=== PATIENT | female | born 1960 | race Caucasian/White ===

== ENCOUNTER → 2020-04-19 08:31 | Outpatient (BNVA) | payer MEDICAID, SELFPAY | PROVIDERS: PCP Nurse Practitioner Family; Referring Provider Nurse Practitioner Family; Visit Provider Nurse Practitioner | DX: K59.04 Chronic idiopathic constipation (principal); R14.0 Abdominal distension (gaseous); K21.9 Gastro-esophageal reflux disease without esophagitis; K31.9 Disease of stomach and duodenum, unspecified | CPT/HCPCS: 99213 ==

== ENCOUNTER → 2020-05-10 07:57 | Outpatient (REF) | payer MEDICAID, SELFPAY ==
--- NOTE | 2020-05-10 | NM_ITS ---
EXAMINATION: RADIONUCLIDE SOLID FOOD GASTRIC EMPTYING 4-HOUR STUDY CLINICAL INFORMATION: Gastroparesis. COMPARISON: No previous gastric emptying study is available for comparison. TECHNIQUE: A standard meal consisting of 4 oz of Egg Beaters brand tagged with 1 mCi Tc-99m Sulfur Colloid, 8 oz water and 2 slices of toast with jelly was administered orally to the patient. Images were obtained using a dual head gamma camera in the anterior and posterior projections over of the stomach immediately post ingestion and at hourly intervals up to 3 hours post ingestion. Images were not obtained at 4 hours due to the minimal retention at 3 hours. The anterior and posterior counts at each time interval were averaged using the geometric mean and expressed as percentage of the immediate post ingestion counts. FINDINGS: There is good visualization of activity in the stomach immediately post ingestion. As the study progresses, there is good clearance of activity from the stomach and visualization of progressively increasing small bowel activity. By the end of the study, there is almost no retention noted in the stomach. Retention in the stomach at each time interval was: 1 hour 87% (normal 37%-90%) 2 hours 45% (normal 30%-60%) 3 hours 6% 4 hours (Not Obtained) (normal 0%-10%) NM/NM gastric emptying study IMPRESSION: Normal solid food gastric emptying study.
== END ==
LOC: HO.NUCMED 07:57
PROVIDERS: Visit Provider Internal Medicine Gastroenterology
DX: K31.84 Gastroparesis (principal)
CPT/HCPCS: 78264; A9541

== ENCOUNTER → 2020-05-24 08:46 | Outpatient (BNVA) | payer MEDICAID, SELFPAY | PROVIDERS: PCP Nurse Practitioner Family; Referring Provider Nurse Practitioner Family; Visit Provider Nurse Practitioner | DX: K59.04 Chronic idiopathic constipation (principal); K21.9 Gastro-esophageal reflux disease without esophagitis; R14.0 Abdominal distension (gaseous); K31.9 Disease of stomach and duodenum, unspecified | CPT/HCPCS: 99212 ==

== ENCOUNTER → 2020-06-09 08:51 | Outpatient (BNVA) | payer MEDICAID, SELFPAY | PROVIDERS: PCP Nurse Practitioner Family; Visit Provider Nurse Practitioner | DX: Z76.89 Persons encountering health services in other specified circumstances (principal) ==

== ENCOUNTER → 2020-07-21 11:28 | Outpatient (BNVA) | payer MEDICAID, SELFPAY | PROVIDERS: PCP Nurse Practitioner Family; Visit Provider Nurse Practitioner ==

== ENCOUNTER → 2021-01-22 15:28 | Outpatient (BNVA) | payer MEDICAID, SELFPAY | PROVIDERS: Visit Provider Nurse Practitioner | DX: K21.9 Gastro-esophageal reflux disease without esophagitis (principal); K59.04 Chronic idiopathic constipation; K31.9 Disease of stomach and duodenum, unspecified; R14.0 Abdominal distension (gaseous) | CPT/HCPCS: 99212 ==

== ENCOUNTER 2021-02-15 10:39 | Outpatient (REF) | payer MEDICAID, SELFPAY ==
[2021-02-16 09:26] LABS: BV Int Neg Control Negative (Negative); BV Int Pos Control Positive (Positive)
== END 2021-02-15 10:40 | disposition home or self-care (01) ==
LOC: HO.LAB 10:39
PROVIDERS: Visit Provider Advanced Practice Midwife
DX: Z01.411 Encounter for gynecological examination (general) (routine) with abnormal findings (principal); N89.8 Other specified noninflammatory disorders of vagina; R32 Unspecified urinary incontinence
CPT/HCPCS: 87480; 87510; 87660

== ENCOUNTER → 2021-03-08 15:13 | Outpatient (BNVA) | payer MEDICAID, SELFPAY | PROVIDERS: PCP Nurse Practitioner Family; Visit Provider Nurse Practitioner ==

== ENCOUNTER → 2021-03-28 08:41 | Outpatient (BNVA) | payer MEDICAID, SELFPAY | PROVIDERS: PCP Nurse Practitioner Family; Visit Provider Advanced Practice Midwife | DX: N39.41 Urge incontinence (principal) | CPT/HCPCS: 99212 ==

== ENCOUNTER 2021-04-27 14:43 | Outpatient (REF) | payer MEDICAID, SELFPAY ==
[2021-04-27 15:14] LABS: MANUAL DIFF FLAG NO
[2021-04-27 15:18] LABS: Basophils Percent Auto 0.3 % (0-2); Eosinophils Absolute Auto 0.1 X10*3/uL (0.0-0.4); Eosinophils Percent Auto 1.6 % (0-4); Hematocrit 38.6 % (37-47); Hemoglobin 12.3 g/dl (12.0-16.0); Imm Gran Abs Auto 0.02 X10*3/uL (0.00-0.03); Imm Gran Pct Auto 0.3 % (0.0-0.4); Lymphocytes Absolute Auto 1.6 X10*3/uL (1.2-4.9); Lymphocytes Percent Auto 27.1 % (20-40); Mean Corpuscular HGB Conc 31.9 g/dl (31.0-35.0); Mean Corpuscular Hemoglobin 27.8 pg (27.0-33.0); Mean Corpuscular Volume 87.1 fL (80-98); Mean Platelet Volume 9.5 fL (9.4-12.3); Monocytes Absolute Auto 0.5 X10*3/uL (0.1-1.2); Monocytes Percent Auto 8.6 % (2-11); Neutrophils Absolute Auto 3.6 X10*3/uL (2.0-8.3); Neutrophils Percent Auto 62.1 % (45-73); Platelet Count 264 X10*3/uL (160-400); Red Blood Count 4.43 X10*6/uL (4.20-5.50); Red Cell Distribution Width 13.8 % (11.0-16.0); White Blood Count 5.8 X10*3/uL (4.8-10.8)
[2021-04-27 15:38] LABS: Alanine Aminotransferase 12 U/L (0-31); Albumin Level 4.2 g/dL (3.5-5.0); Alkaline Phosphatase 101 U/L (39-117); Anion Gap 12 (12-20); Aspartate Amino Transferase 16 U/L (5-31); Bilirubin Total 0.4 mg/dL (0.0-1.0); Blood Urea Nitrogen 9 mg/dL (9-16); Calcium 9.2 mg/dL (8.4-10.2); Carbon Dioxide 26 mmol/L (22-29); Chloride 108 mmol/L (96-108); Estimated Glomerular Filt Rate > 60; Glucose Random 101 mg/dL (60-115); Sodium 142 mmol/L (135-145); Total Protein 6.8 g/dL (6.5-8.0)
== END 2021-04-27 14:44 | disposition home or self-care (01) ==
LOC: HO.LAB 14:43
PROVIDERS: PCP Nurse Practitioner Family; Visit Provider Nurse Practitioner
DX: Z01.811 Encounter for preprocedural respiratory examination (principal); R13.10 Dysphagia, unspecified
CPT/HCPCS: 36415; 80053; 85025

== ENCOUNTER 2021-06-19 07:31 | Day surgery (SDC) | payer MEDICAID, SELFPAY ==
--- NOTE | 2021-06-18 09:58 | P.CONAN_ITS ---
Documented by User: Jeannie Floyd NP 06/18/21 10:00 HPI - Anesthesia Eval Consult details Narrative: 60yo F for Upper Endoscopy with Balloon Dilitation PMFSH Active Problems Active Problems: All Active Problems (Updated 06/12/21 @ 14:25 by Delfina Bose RN) Chronic idiopathic constipation (Acute) Abdominal bloating (Acute) GERD (gastroesophageal reflux disease) (Acute) Gastropathy (Acute) Encounter for annual routine gynecological examination (Acute) Vaginal odor (Acute) Urinary incontinence (Acute) Pre-op chest exam (Acute) Dysphagia (Acute) Past Medical History Medical History (Updated 06/12/21 @ 14:25 by Delfina Bose RN) Anxiety and depression Bladder prolapse Fibromyalgia GERD (gastroesophageal reflux disease) Vertigo Family History Family History Father No problems noted. Mother High blood pressure Heart problem Sister Heart problem Son Obesity Daughter Multiple sclerosis Thyroid condition Surgical History Surgical History (Updated 06/12/21 @ 14:26 by Delfina Bose RN) H/O esophagogastroduodenoscopy History of endometrial ablation Hx of section Hx of fasciotomy Hx of hysterectomy Hx of oophorectomy Social History Social History Household Members Other:: SON Alcohol intake: current Alcohol intake frequency: does not drink Patient Tobacco Use Status: Never used Tobacco Use of substances other than those prescribed or required for medical reasons: No Are you DNR?: No Advance Directives: No Advance Directives Information Provided: Yes service: No Current occupational status: disabled Meds Allergies Allergy/AdvReac Type Severity Reaction Status Date / Time No Known Allergies Allergy Verified 06/12/21 14:26 Home Medications Medication Instructions Recorded Confirmed Last Taken Type gabapentin 300 mg capsule 300 mg PO BID 02/15/21 06/12/21 Unknown History amitriptyline 100 mg tablet 100 mg PO DAILY 03/08/21 06/12/21 Unknown History duloxetine 30 mg capsule,delayed 30 mg PO DAILY 03/08/21 06/12/21 Unknown History release Exam Exam Date and Time: June 18, 2021 0958 Pertinent Lab Results Pertinent Lab Results: Laboratory Tests 04/27/21 04/27/21 14:50 14:50 WBC 5.8 Hgb 12.3 Hct 38.6 Plt Count 264 Sodium 142 Potassium 4.0 Chloride 108 Carbon Dioxide 26 BUN 9 Creatinine 0.66 Assessment and Plan Assessment Anesthesia Assessment: Chart Reviewed Documented by User: Raejev Banks 06/19/21 08:35 [facility] Past Medical History Medical History (Updated 06/12/21 @ 14:25 by Delfina Bose, SHARYN) Anxiety and depression Bladder prolapse Fibromyalgia GERD (gastroesophageal reflux disease) Vertigo Functional capacity: independent ambulation Family History Family History Father No problems noted. Mother High blood pressure Heart problem Sister Heart problem Son Obesity Daughter Multiple sclerosis Thyroid condition Family history of problems with anesthesia: No Surgical History Surgical History (Updated 06/12/21 @ 14:26 by Delfina Bose RN) H/O esophagogastroduodenoscopy History of endometrial ablation Hx of section Hx of fasciotomy Hx of hysterectomy Hx of oophorectomy History of Problems with Anesthesia: No Social History Social History Household Members Other:: SON Alcohol intake: current Alcohol intake frequency: does not drink Patient Tobacco Use Status: Never used Tobacco Use of substances other than those prescribed or required for medical reasons: No Are you DNR?: No Advance Directives: No Advance Directives Information Provided: Yes service: No Current occupational status: disabled Meds Allergies Allergy/AdvReac Type Severity Reaction Status Date / Time No Known Allergies Allergy Verified 06/12/21 14:26 Home Medications Medication Instructions Recorded Confirmed Last Taken Type gabapentin 300 mg capsule 300 mg PO BID 02/15/21 06/12/21 Unknown History amitriptyline 100 mg tablet 100 mg PO DAILY 03/08/21 06/12/21 Unknown History duloxetine 30 mg capsule,delayed 30 mg PO DAILY 03/08/21 06/12/21 Unknown History release Exam Airway Mallampati Class: III Loose/Missing/Broken Teeth: Yes (Upper bridge ) Assessment and Plan Final Anesthetic Review Family History of Problems with Anesthesia: No History of Problems with Anesthesia: No NPO: Yes ASA Class: II Final Preanesthetic Review: Cornels/Qamar Chart Reviewed Patient Risk: Intermediate Procedure Risk: Intermediate Anesthetic Plan Anesthetic Plan: MAC: Disposition: Standard PACU
[2021-06-19 06:55] VITALS: BMI 32.3
[2021-06-19 07:50] VITALS: BP 123/70; PULSE 59; RESP 18; TEMP 36.6; O2SAT 97
[2021-06-19] MEDS: Lactated Ringers 1,000 ML 100 ML IVCONT (07:57)
--- NOTE | 2021-06-19 08:21 | MHC.SHP ---
Pre-Procedural Eval Section A Date of Service: 06/19/21 The patient is an INPATIENT: No The History & Physical has been completed within 30 days and I have reviewed it.: No Section B Chief Complaint: Dysphagia Details of Present Illness: Dysphagia, GERD Relevant Family History (Specify if Yes): No Present Medications: see Short Stay Collaborative assessment Medical History: Significant History (Bladder prolapse) History of Previous Operations: Relevant previous surgery/procedure and date(s) (H/O esophagogastroduodenoscopy History of endometrial ablation Hx of section Hx of fasciotomy Hx of hysterectomy (~05/2020) Hx of oophorectomy) Allergies: Allergies Allergy/AdvReac Type Severity Reaction Status Date / Time No Known Allergies Allergy Verified 06/12/21 14:26 Review of Systems Sugical H&P ROS: Negative: Constitution, Cardiovascular and Respiratory and Yes, Specify: Gastrointestinal (GERD, dysphagia) Exam Surgical H&P Exam: Normal: Heart, Normal: Lungs and Normal: Extremities Plan Diagnosis/Plan: Unchanged I have reviewed the history and physical and performed a pertinent physical examination on my patient. No changes have occurred unless specified.
--- NOTE | 2021-06-19 08:39 | PM.OP ---
Brief Operative Note Date of Service: 06/19/21 Pre-op diagnosis: GERD, dysphagia Post-op diagnosis: same Procedure: FLEXIBLE TRANSORAL UPPER GASTROINTESTINAL ENDOSCOPY WITH BALLOON DILATION OF UPPER AND LOWER ESOPHAGEAL SPHINCTERS Consent: Indications for the procedure and potential complications of bleeding, perforation, reaction to medications and missed diagnosis were discussed with the patient and informed consent was obtained. Instrument: Olympus GIF H 190 mid size upper endoscope Monitoring: Vital signs and clinical assessment, continuous EKG monitoring, Pulse oximetry, Carbon Dioxide monitoring and blood pressure monitoring were done throughout the procedure. Procedure: The patient was placed in the left lateral decubitis position and pre-procedure medications were administered and a bite block was placed. The endoscope was inserted into the mouth and advanced under direct vision to the third part of duodenum. A careful inspection was made as the upper endoscope was withdrawn including a retroflexed examination of the proximal stomach; Findings and interventions are described below. Findings: Larynx: Normal Esophagus: GE junction at 36 cms. Tortuous esophagus with increased tertiary contractions without stricture or ring. Balloon dilation of LES was performed with a 20 F CRE balloon x 60 seconds. UES was dilated with an 18 mm CRE balloon x 60 seconds. Stomach: Gastric mucosa partially obscured by retained food suggestive of gastroparesis. Grade 2 flap valve on retroflexed examination of the cardia. Duodenum: Normal bulb and descending duodenum Intervention: Balloon dilation as noted above Impression and Post Procedure Diagnosis: Endoscopy Findings: ESOPHAGUS: Tortuous esophagus with increased tertiary contractions without stricture or ring. Balloon dilation of LES was performed with a 20 F CRE balloon x 60 seconds. UES was dilated with an 18 mm CRE balloon x 60 seconds. STOMACH: Gastric mucosa partially obscured by retained food suggestive of gastroparesis versus non-compliance with being NPO x 8 hrs. Plan: Await pathology results Patient has an appointment on 07/03/20 in the GI Clinic with Michelle Livingston NP. Consider further evaluation with a barium swallow if patient has continuing symptoms of dysphagia Of note a Gastric Emptying Study was normal in 04/2020. Above findings were reviewed with the patient and GERD handouts was given in the discharge area Surgeon: Sondra Munoz MD Anesthesia: MAC (Dr Banks) Was an Gas Meter Reader used for this Procedure?: Yes Gas Meter Reader: Tawana Juarez Estimated blood loss (mL): 0 Pathology: none sent Condition: stable Disposition: PACU
--- NOTE | 2021-06-19 08:57 | PM.PROC ---
Brief Operative Note Date of procedure: 06/19/21 Pre-op diagnosis: GERD, dysphagia Post-op diagnosis: same Procedure: Procedure:? FLEXIBLE TRANSORAL UPPER GASTROINTESTINAL ENDOSCOPY WITH BALLOON DILATION OF UPPER AND LOWER ESOPHAGEAL SPHINCTERS Consent:?Indications for the procedure and potential complications of bleeding, perforation, reaction to medications and missed diagnosis were discussed with the patient and informed consent was obtained. Instrument:?Olympus GIF H 190 mid size upper endoscope Monitoring: Vital signs and clinical assessment, continuous EKG monitoring, Pulse oximetry, Carbon Dioxide monitoring and blood pressure monitoring were done throughout the procedure. Procedure:?The patient was placed in the left lateral decubitis position and pre-procedure medications were administered and a bite block was placed. The endoscope was inserted into the mouth and advanced under direct vision to the third part of duodenum. A careful inspection was made as the upper endoscope was withdrawn including a retroflexed examination of the proximal stomach; Findings and interventions are described below. Findings: Larynx:? Normal Esophagus: GE junction at 36 cms. Tortuous esophagus with increased tertiary contractions without stricture or ring.? Balloon dilation of LES was performed with a 20 F CRE balloon x 60 seconds.? UES was dilated with an 18 mm? CRE balloon x 60 seconds. Stomach: Gastric mucosa partially obscured by retained food suggestive of gastroparesis. Grade 2 flap valve on retroflexed examination of the cardia. Duodenum: Normal bulb and descending duodenum Intervention: Balloon dilation as noted above Impression and Post Procedure Diagnosis: Endoscopy Findings: ESOPHAGUS: Tortuous esophagus with increased tertiary contractions without stricture or ring.? Balloon dilation of LES was performed with a 20 F CRE balloon x 60 seconds.? UES was dilated with an 18 mm? CRE balloon x 60 seconds. STOMACH: Gastric mucosa partially obscured by retained food suggestive of gastroparesis versus non-compliance with being NPO x 8 hrs. Plan: Await pathology results Patient has an appointment on 07/03/20 in the GI Clinic with? Michelle Livingston NP. Consider further evaluation with a barium swallow if patient has continuing symptoms of dysphagia Of note a Gastric Emptying Study was normal in 04/2020. Above findings were reviewed with the patient and GERD handouts was given in the discharge area Anesthesia: MAC (Dr Banks) Surgeon: Sondra Munoz Command Post Craftsman: Tawana Juarez Estimated blood loss (mL): 0 Pathology: none sent Condition: stable Disposition: PACU
[2021-06-19 09:00] VITALS: BP 101/57; PULSE 77; RESP 16; TEMP 36.9; O2SAT 98
[2021-06-19 09:19] VITALS: BP 130/73; PULSE 63; RESP 16; TEMP 36.9; O2SAT 99
== END 2021-06-19 10:05 ==
LOC: HO.SSS 07:31
PROVIDERS: PCP Nurse Practitioner Family; Visit Provider Internal Medicine Gastroenterology
PROC: (CPT 43249; principal; 2021-06-19 08:20)
DX: R13.10 Dysphagia, unspecified (principal); K22.89 Other specified disease of esophagus; K21.9 Gastro-esophageal reflux disease without esophagitis; K59.04 Chronic idiopathic constipation; R14.0 Abdominal distension (gaseous); K31.9 Disease of stomach and duodenum, unspecified
CPT/HCPCS: 43249; C1726

== ENCOUNTER → 2021-07-03 10:34 | Outpatient (BNVA) | payer MEDICAID, SELFPAY | PROVIDERS: PCP Nurse Practitioner Family; Referring Provider Nurse Practitioner Family; Visit Provider Nurse Practitioner | DX: K21.9 Gastro-esophageal reflux disease without esophagitis (principal); K59.04 Chronic idiopathic constipation; K30 Functional dyspepsia; R14.0 Abdominal distension (gaseous); R13.10 Dysphagia, unspecified | CPT/HCPCS: 99212 ==

== ENCOUNTER 2022-02-18 10:14 | Outpatient (REF) | payer MEDICAID, SELFPAY ==
[2022-02-19 10:11] LABS: BV Int Neg Control Negative (Negative); BV Int Pos Control Positive (Positive)
== END 2022-02-18 10:15 | disposition home or self-care (01) ==
LOC: HO.LAB 10:14
PROVIDERS: Visit Provider Advanced Practice Midwife
DX: N89.8 Other specified noninflammatory disorders of vagina (principal)
CPT/HCPCS: 87480; 87510; 87660

== ENCOUNTER → 2022-03-12 10:08 | Outpatient (BNVA) | payer MEDICAID, SELFPAY | PROVIDERS: PCP Nurse Practitioner Family; Visit Provider Nurse Practitioner | DX: K21.9 Gastro-esophageal reflux disease without esophagitis (principal); R13.10 Dysphagia, unspecified; K30 Functional dyspepsia; K59.04 Chronic idiopathic constipation | CPT/HCPCS: 99212 ==

== ENCOUNTER → 2022-05-01 15:49 | Outpatient (BNVA) | payer MEDICAID, SELFPAY | PROVIDERS: PCP Nurse Practitioner Family; Referring Provider Nurse Practitioner Family; Visit Provider Nurse Practitioner | DX: K30 Functional dyspepsia (principal); K59.04 Chronic idiopathic constipation; R14.0 Abdominal distension (gaseous); K21.9 Gastro-esophageal reflux disease without esophagitis | CPT/HCPCS: 99212 ==

== ENCOUNTER 2022-10-10 07:41 | Day surgery (SDC) | payer OTHER, SELFPAY ==
[2022-10-10 07:47] VITALS: BMI 33.8
--- NOTE | 2022-10-10 07:47 | MHC.SHP ---
Pre-Procedural Eval Section A Date of Service: 10/10/22 Section B Chief Complaint: Dysphagia, unspecified Details of Present Illness: PMH: Anxiety and depression Bladder prolapse Fibromyalgia GERD (gastroesophageal reflux disease) Lichen sclerosus Vertigo Surgical History H/O colonoscopy H/O esophagogastroduodenoscopy History of endometrial ablation Hx of section Hx of fasciotomy Hx of hysterectomy Hx of oophorectomy Relevant Family History (Specify if Yes): No Relevant Social History: None Present Medications: see Short Stay Collaborative assessment Allergies: Allergies Allergy/AdvReac Type Severity Reaction Status Date / Time No Known Allergies Allergy Verified 10/10/22 07:25 Review of Systems Review of Systems Comment: 10 point ROS as above Exam Exam Comment: Gen appear: No acute distress HEENT: no icterus Chest: No overt resp distress Abd: soft, nontender, nondistended Psych: Stable affect, answering questions appropriately Neuro: A/Ox3 noted to move all extremities spontaneously Ext: no peripheral edema Plan Diagnosis/Plan: Unchanged I have reviewed the history and physical and performed a pertinent physical examination on my patient. No changes have occurred unless specified. Time Spent With Patient Time: Total time managing care of this patient today ____ minutes.
[2022-10-10] MEDS: Lactated Ringers 1,000 ML 50 ML IVCONT (07:49)
[2022-10-10 08:13] VITALS: BP 158/74; PULSE 70; RESP 18; TEMP 36.7; O2SAT 98
--- NOTE | 2022-10-10 08:27 | P.OP_ITS ---
Operative Note Operative Note Date of Service: 10/10/22 Narrative: Procedure: Esophagogastroduodenoscopy Endoscopist: Marie Ratliff MD Indication: Dysphagia Anesthesia Provider: Dr Vero Schultz Anesthesia Type: MAC Instrument: Olympus GIF-H190 ?? EGD Procedure:?? The procedure, indications, preparation and potential complications were reviewed with the patient with the help of a numerical tool programmer, who indicated understanding and gave written informed consent to proceed. A physical exam was performed. The endoscope was introduced through the mouth, and advanced to the second part of duodenum. The mucosa was carefully examined on slow withdrawal of the endoscope. The patient tolerated the procedure well. There were no immediate complications.? ? EGD Findings:? * Esophagus:? Normal mucosa noted in the entire esophagus. The Z line was at 36 cm and irregular to < 1cm. * Stomach:? Normal mucosa was noted in the stomach. * Duodenum:? Normal mucosa was noted in the whole of the examined duodenum. Additional intervention: A soft tip Savary wire was introduced through the gastroscope biopsy channel and advanced to the antrum. The gastroscope was then backed out. A Savary Davian bougie was guided over the wire and the esophagus was incrementally dilated from 16-18 mm. On relook, small tear was noted at the level of cricopharyngeus indicating successful dilation. ? EGD Impressions:? * Normal esophagus (dilated) * Normal stomach * Normal duodenum ?? Recommendations:?? * Can take PO lidocaine/magic mouthwash PRN for the next 1-2 days for soreness. * Repeat EGD with dilation as needed for return of dysphagia Above has been reviewed with the patient. Relevant educational hand outs were provided at discharge.
[2022-10-10 09:03] VITALS: BP 126/71; PULSE 80; RESP 16; TEMP 36.3; O2SAT 95
[2022-10-10 09:18] VITALS: BP 147/72; PULSE 65; RESP 16; O2SAT 96
[2022-10-10 09:33] VITALS: BP 154/91; PULSE 65; RESP 16; TEMP 37.1; O2SAT 96
[2022-10-10] MEDS: Mag&Al/Sim/Diphenhyd/Lidocaine 10 ML ORAL.SUSP PO (09:34)
--- NOTE | 2022-10-10 09:34 | P.CONAN_ITS ---
HPI - Anesthesia Eval Consult details Narrative: dysphagia [facility] Active Problems Active Problems: All Active Problems (Updated 07/25/22 @ 15:53 by Delfina Bose RN) Chronic idiopathic constipation (Acute) Abdominal bloating (Acute) GERD (gastroesophageal reflux disease) (Acute) Gastropathy (Acute) Encounter for annual routine gynecological examination (Acute) Vaginal odor (Acute) Urinary incontinence (Acute) Pre-op chest exam (Acute) Dysphagia (Acute) Delayed gastric emptying (Acute) Lichen sclerosus (Acute) Past Medical History Medical History Anxiety and depression Bladder prolapse Fibromyalgia GERD (gastroesophageal reflux disease) Lichen sclerosus WANDA (obstructive sleep apnea) Vertigo Family History Family History Father No problems noted. Mother High blood pressure Heart problem Sister Heart problem Son Obesity Daughter Multiple sclerosis Thyroid condition Family history of problems with anesthesia: No Surgical History Surgical History H/O colonoscopy H/O esophagogastroduodenoscopy History of endometrial ablation Hx of section Hx of fasciotomy Hx of hysterectomy Hx of oophorectomy History of Problems with Anesthesia: No Social History Social History Household Members Other:: SON Housing: Apartment Alcohol intake: former Patient Tobacco Use Status: Never used Tobacco Are you DNR?: No Advance Directives: No Advance Directives Information Provided: Yes Nutrition Risks: No Nutritional Risk service: No Current occupational status: disabled Sexual orientation: Straight/Heterosexual Gender identity: Female Meds Allergies Allergy/AdvReac Type Severity Reaction Status Date / Time No Known Allergies Allergy Verified 10/10/22 07:25 Active Medications: Current Medications Lactated Ringer's (Lr) 1,000 mls @ 50 mls/hr IVCONT .Q20H ISABELLE Last Infusion: 10/10/22 09:11 Dose: Infused Home Medications Medication Instructions Recorded Confirmed Last Taken Type gabapentin 300 mg capsule 300 mg PO BID 02/15/21 07/25/22 Unknown History amitriptyline 100 mg tablet 100 mg PO DAILY 03/08/21 07/25/22 Unknown History duloxetine 30 mg capsule,delayed 30 mg PO DAILY 03/08/21 07/25/22 Unknown History release estradiol 0.01% (0.1 mg/gram) 1 g vaginal 2XW 02/18/22 07/25/22 Unknown History vaginal cream cyclobenzaprine 10 mg tablet 10 mg PO TID 03/12/22 07/25/22 Unknown History lorazepam 1 mg tablet 0.5 mg PO 03/12/22 Unknown History meclizine 25 mg tablet 25 mg PO TID PRN vertigo 03/12/22 07/25/22 Unknown History naproxen 500 mg tablet 500 mg PO BID PRN Pain 03/12/22 07/25/22 Unknown History tramadol 50 mg tablet 50 mg PO 03/12/22 Unknown History Exam Exam Date and Time: October 10, 2022 0934 Height,Weight and Vital Signs: Height 5 ft 2 in Weight 83.915 kg Last Vital Signs Temp 97.3 F 10/10/22 09:03 Pulse 65 10/10/22 09:18 Resp 16 10/10/22 09:18 BP 147/72 H 10/10/22 09:18 Pulse Ox 96 10/10/22 09:18 O2 Del Method Room Air 10/10/22 09:18 Airway Mallampati Class: II TM Dist: >3cm Neck ROM: Full Loose/Missing/Broken Teeth: No Heart: rr Lungs: cta Assessment and Plan Assessment Anesthesia Assessment: Anesthesia Plan Discussed and Chart Reviewed Final Anesthetic Review Family History of Problems with Anesthesia: No History of Problems with Anesthesia: No ASA Class: II Final Preanesthetic Review: No Changes in Pt Med Stat, Meds/Allgs Chart Reviewed, Consent Obtained/Reviewed and Anes Risks/Benef Reviewed Patient Risk: Low Procedure Risk: Low Anesthetic Plan Anesthetic Plan: MAC: Disposition: Standard PACU
== END 2022-10-10 10:07 | disposition home or self-care (01) ==
PROVIDERS: PCP Nurse Practitioner Family; Visit Provider Internal Medicine
PROC: 0DJ08ZZ Inspection of Upper Intestinal Tract, Via Natural or Artificial Opening Endoscopic (ICD-10-PCS; CPT 43235; principal; 2022-10-10 09:00)
DX: R13.10 Dysphagia, unspecified (principal); K21.9 Gastro-esophageal reflux disease without esophagitis; R14.0 Abdominal distension (gaseous)
CPT/HCPCS: 43248; C1769

== ENCOUNTER → 2022-10-15 15:21 | Outpatient (BNVA) | payer OTHER, SELFPAY | PROVIDERS: PCP Nurse Practitioner Family; Visit Provider Nurse Practitioner | DX: Z13.89 Encounter for screening for other disorder (principal) ==

== ENCOUNTER 2023-02-20 11:12 | Outpatient (REF) | payer OTHER, SELFPAY ==
[2023-02-21 04:09] LABS: CT PCR NOT DETECTED (Not Detect.); NG PCR NOT DETECTED (Not Detect.)
[2023-02-21 15:42] LABS: BV Int Neg Control Negative (Negative); BV Int Pos Control Positive (Positive)
== END 2023-02-20 11:13 | disposition home or self-care (01) ==
LOC: HO.LNP 11:12
PROVIDERS: Advanced Practice Midwife; PCP Nurse Practitioner Family; Visit Provider Advanced Practice Midwife
DX: Z01.419 Encounter for gynecological examination (general) (routine) without abnormal findings (principal); N89.8 Other specified noninflammatory disorders of vagina; L90.0 Lichen sclerosus et atrophicus; R30.0 Dysuria; R32 Unspecified urinary incontinence; Z90.710 Acquired absence of both cervix and uterus; Z90.721 Acquired absence of ovaries, unilateral; Z79.899 Other long term (current) drug therapy
CPT/HCPCS: 0353U; 87480; 87510; 87660

== ENCOUNTER 2023-02-20 11:12 | Outpatient (AMB) | payer OTHER, SELFPAY ==
--- NOTE | 2023-02-20 11:28 | MHC.OFFVIS ---
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 Performance Instructor Required: Yes Performance Instructor Language: Emirati Information Interpreted: non-clinical & clinical Hospital Receptionist: Hospital Receptionist Present (Aidyn) Allergies No Known Allergies Allergy (Verified 02/20/23 11:33) Medication List - Last Reconciled 02/20/23 by Martha Robles CNM amitriptyline 100 mg PO DAILY bisacodyl (Dulcolax (bisacodyl)) 10 mg (2 x 5 mg) PO BEDTIME 30 days clobetasol 0.05% (Temovate) 1 appl topical DAILY cyclobenzaprine 10 mg PO TID duloxetine 30 mg PO DAILY estradiol 0.01%(0.1mg/gram) 1 g vaginal 2XW gabapentin 300 mg PO BID hydrocortisone valerate 0.2% 1 appl topical BEDTIME PRN 30 days linaclotide (Linzess) 290 mcg PO QAM 30 days lorazepam 0.5 mg PO meclizine 25 mg PO TID PRN meloxicam 15 mg PO DAILY metoclopramide HCl (Reglan) 10 mg PO QIDACHS naproxen 500 mg PO BID PRN omeprazole 40 mg PO BID 30 days simethicone 180 mg PO BID tramadol 50 mg PO Is last menstrual period known: No Post menopausal: Yes HPI 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 She has a history of urinary incontinence and had Botox injections for that and that failed so she ended up with a hysterectomy because her uterus was very low the hysterectomy and removal of 1 ovary was done at [facility]. She also has been given 2 prescriptions in the past by other providers in this office 1 for estradiol 0.01% vaginal cream that she places 1 g in her vagina every Friday and and also she was given a prescription for clobetasol propionate ointment 0.05% to use in the effective area for bedtime for 2 weeks and then every other day for 2 weeks and then twice a week this was done for vaginal itching. Patient also has been having a bad smell to her urine and thinks she has a urinary tract infection she saw her primary care provider yesterday next to or to or house in [place] but did not mention it because she thought she was coming here and she would mention it here she has an appointment at Urology for follow-up of her urinary issues as well at [facility] at the beginning of March. Patient states she has never had an abnormal Pap smear and was told she would not need any more Pap smears. She has not been sexually active since 2013 but she complains of a odor and is worried about infection. She has expects vaginal cultures today. She has run out of the creams that she was given to use internally and externally she has been scratching. Additionally she said that she saw some dark staining on her underwear. She is hoping to get an ultrasound to check on her ovaries. [facility] Medical History (Updated 02/20/23 @ 12:19 by Martha Robles CNM) Anxiety and depression Bladder prolapse Fibromyalgia GERD (gastroesophageal reflux disease) Lichen sclerosus WANDA (obstructive sleep apnea) Vertigo Surgical History (Updated 02/20/23 @ 12:20 by Martha Robles CNM) H/O colonoscopy H/O esophagogastroduodenoscopy History of endometrial ablation Hx of fasciotomy Hx of hysterectomy Hx of oophorectomy Family History Father No problems noted. Mother High blood pressure Heart problem Sister Heart problem Son Obesity Daughter Multiple sclerosis Thyroid condition Social History Household Members Other:: SON Housing: Apartment Alcohol intake: former Patient Tobacco Use Status: Never used Tobacco service: No Current occupational status: disabled Sexual orientation: Straight/Heterosexual Gender identity: Female Female Reproductive History Menstrual Age of Menarche: 11 control method: permanent sterilization Total pregnancies: 6 Full term: 5 Number of Living Children: 5 Ab spontaneous: 1 Date of last pap smear: 02/02/16 (NEGATIVE) Physical Exam Vital Signs: Last Vital Signs BP 130/82 02/20/23 11:29 BMI result Body Mass Index 32.9 Const General: healthy appearing, comfortable, no acute distress, well developed and alert Nutritional Appearance: average body habitus Orientation/consciousness: patient oriented x3 Limitations: no limitations HEENT Head: Yes normocephalic Neck Neck: Yes normal visual inspection Thyroid: Thyroid normal Chest Chest palpation & inspection: normal inspection of the chest Breast/axilla inspection: normal inspection of the breasts and normal inspection of the axillae Breast/axilla palpation: normal palpation of the breasts and normal palpation of the axillae Resp Effort & Inspection: normal respiratory effort GI Inspection: Yes normal to inspection, No Abdominal wall edema and No distended Palpation (GI): Soft to palpation and nontender Other: There is some dryness of the external labia minora but no obvious rash or irritation there is evidence of panty liner use. Patient states she wears cotton underwear but she does use panty liner sometimes Vagina is somewhat atrophic. Palpation of vagina reveals some tenderness at the vaginal cuff which has some thin mucosal membranes scar tissue layers that are very finally stretched at the apex of her vagina from hysterectomy scar Nontender at adnexae. External Female Exam: normal external appearance and normal appearance of the urethra Speculum Exam - Vagina: normal appearance of the vagina and normal vaginal discharge Bimanual Exam- Adnexa, other: normal adnexae, no masses, normal and No adnexal tenderness Neuro General: patient oriented x3 Assessment & Plan Assessment & Plan (1) Encounter for annual routine gynecological examination: Code(s): Z01.419 - Encounter for gynecological examination (general) (routine) without abnormal findings (2) Vaginal odor: Code(s): N89.8 - Other specified noninflammatory disorders of vagina (3) Lichen sclerosus: Code(s): L90.0 - Lichen sclerosus et atrophicus (4) Dysuria: Code(s): R30.0 - Dysuria (5) Urinary incontinence: Code(s): R32 - Unspecified urinary incontinence Plan Patient is here to see another provider for an annual exam but arrived late and was placed on to this provider schedule. She has a history of urinary incontinence and had Botox injections for that and that failed so she ended up with a hysterectomy because her uterus was very low the hysterectomy and removal of 1 ovary was done at [facility]. She also has been given 2 prescriptions in the past by other providers in this office 1 for estradiol 0.01% vaginal cream that she places 1 g in her vagina every Friday and and also she was given a prescription for clobetasol propionate ointment 0.05% to use in the effective area for bedtime for 2 weeks and then every other day for 2 weeks and then twice a week this was done for vaginal itching. Patient also has been having a bad smell to her urine and thinks she has a urinary tract infection she saw her primary care provider yesterday next to or to or house in [place] but did not mention it because she thought she was coming here and she would mention it here she has an appointment at Urology for follow-up of her urinary issues as well at [facility] at the beginning of March. Patient states she has never had an abnormal Pap smear and was told she would not need any more Pap smears. She has not been sexually active since 2013 but she complains of a odor and is worried about infection. She has expects vaginal cultures today. She has run out of the creams that she was given to use internally and externally she has been scratching. Additionally she said that she saw some dark staining on her underwear. She is hoping to get an ultrasound to check on her ovaries. Will refill her clobetasol and her a sturdy all. I am ordering an ultrasound. I urged her very much to go to her primary care provider today especially as it is by her house and ask if she can submit a urine culture to see if she has a urinary tract infection. I believe that some of the tenderness she has is from the scar tissue from the hysterectomy at vaginal cuff. Testing was done for gonorrhea and chlamydia though she is at extremely low risk for that and for trichomoniasis Gardnerella and Salud the latter 2 of which can be in normal clive. We will treat if any of the latter 2 are or if anything for that matter is found but I stressed the importance of following with the providers who are managing her total primary care or Urology for all things urinary and that vaginal concerns are in some more is different from urological concerns. She says her mammograms get done at [facility] and are ordered by her primary. Also discussed my finding of the thin bit of scar tissue at the vaginal cuff and described to her. Also gave her a copy of her blood pressure for her own benefit. We will have a tele visit after the ultrasound and I gave her refills of her medications to her [facility] on [facility] in [place]. Orders: Orders Bacterial Vaginosis Panel Today Z01.419 - Encounter for gynecological examination (general) (routine) without abnormal findings CT NG by PCR Today Z01.419 - Encounter for gynecological examination (general) (routine) without abnormal findings US pelvic and transvaginal Today L90.0 - Lichen sclerosus et atrophicus, N89.8 - Other specified noninflammatory disorders of vagina, R30.0 - Dysuria, R32 - Unspecified urinary incontinence, Z01.419 - Encounter for gynecological examination (general) (routine) without abnormal findings Medications: Changed From estradiol 0.01%(0.1mg/gram) 1 g vaginal 2XW To estradiol 0.01%(0.1mg/gram) apply 1 gram vaginally 2 times a week 1 g vaginal 2XW 42.5 grams 1RF Refilled clobetasol 0.05% (Temovate) apply a thin coat to the area at bedtime x 2 weeks then every other day for 2 weeks, then twice a week Instruction in Emirati 1 appl topical DAILY 30 grams 1RF clobetasol 0.05% (Temovate) apply a thin coat to the area at bedtime x 2 weeks then every other day for 2 weeks, then twice a week Instruction in [place] 1 appl topical DAILY 30 grams 1RF Coding Level of Care Code New Pt Prev Care 40-64y(73585) Diagnoses Encounter for annual routine gynecological examination Z01.419 Vaginal odor N89.8 Lichen sclerosus L90.0 Dysuria R30.0 Urinary incontinence R32
[2023-02-20 11:29] VITALS: BP 130/82; BMI 32.9
== END 2023-02-20 12:35 | disposition home or self-care (01) ==
PROVIDERS: PCP Nurse Practitioner Family; Visit Provider Advanced Practice Midwife
DX: Z01.419 Encounter for gynecological examination (general) (routine) without abnormal findings (principal); N89.8 Other specified noninflammatory disorders of vagina; L90.0 Lichen sclerosus et atrophicus; R30.0 Dysuria; R32 Unspecified urinary incontinence
CPT/HCPCS: 99386

== ENCOUNTER 2023-10-15 13:03 | Outpatient (AMB) | payer OTHER, SELFPAY ==
--- OUTSIDE RECORDS SUMMARY | 2023-10-15 13:07 | XMS_ITS | Continuity of Care Document ---
Author Organization [facility]ale[facility] Address [address], [address]t [place] [address]- Care Team Providers Care Scuba Dive Training Instructor Name Role Phone Not on Staff, PCP Primary Care Physician Unavail able [place] [facility] [place] [facility] Early Branchmelissa MunguiaBusiness e via [employer] [facility] [address], 4th [place] [address]- Allergies, Adverse Reactions, Alerts No Known Allergies Medications Acetaminophen 0 Refills, Maintenance, 06/20/20 11:46:00 EST, Partial fill upon patient request if the prescription is for a schedule II opioid drug. Start Date: 06/20/20 Status: Ordered amiTRIPTYLINE = 50 mg, By Mouth, Daily at bedtime, 0 Refills, Maintenance, 02/21/16 16:29:39 Start Date: 02/21/16 Status: Ordered Botox 100 units injection See Instructions, I00 units of Botox to be injected into patients bladder. Pt will medicinal plant picker medication 12/25/18., # 1 vials, 0 Refills, Maintenance, 12/03/18 9:56:31 EDT Start Date: 12/03/18 Status: Ordered clobetasol 0.05% topical ointment See Instructions, 1 application Topically nightly for 3 months and then 1 - 3x per week for maintenance., # 30 Gm, 2 Refills, Maintenance, 04/02/23 11:31:00 EDT, Ointment, [id number], Partialfill upon patient request if the prescription is fo... Start Date: 04/02/23 Status: Ordered Colace sodium 100 mg oral capsule 100 mg, 1, capsule, By Mouth, 2 times a day, PRN, # 60 capsule, Refills 2, Tot. Refills 2, Maintenance, for constipation, 06/20/20 11:53:00 EST, Route to Pharmacy Electronically, [facility]/pharmacy #[id number], Partial fill upon patient request if the prescriptio... Start Date: 06/20/20 Status: Ordered Cymbalta 30 mg oral enteric coated capsule 1 capsule = 30 mg, By Mouth, Daily, 0 Refills, Maintenance, 11/05/18 10:15:27 EDT Start Date: 11/05/18 Status: Ordered docusate sodium 100 mg oral tablet 1 tablet = 100 mg, By Mouth, 2 times a day, PRN for constipation, # 60 tablet, 0 Refills, Maintenance, 06/05/20 11:53:00 EST, Tablet, [facility]/pharmacy #[id number], Partial fill upon patient request if the prescription is for a schedule II opioid drug., 157.48,... Start Date: 06/05/20 Status: Ordered Estrace Vaginal Cream 0.1 mg/g = 1 Gm, Vaginally, Every Friday and , # 42.5 Gm, 3 Refills, Maintenance, 12/12/20 16:07:00 EDT, [facility]/pharmacy #[id number], Partial fill upon patient request if the prescription is for a schedule II opioid drug., 157.48, cm, 06/20/20 11:44:00 EST, Hei... Start Date: 12/12/20 Status: Ordered Ibuprofen Refills 0, Maintenance, 06/20/20 11:46:00 EST, Partial fill upon patient request if the prescription is for a schedule II opioid drug. Start Date: 06/20/20 Status: Ordered ondansetron 4 mg oral tablet See Instructions, PRN as needed for nausea/vomiting, 1-2 tablet By Mouth Every 8 hours, # 10 tablet, 0 Refills, Maintenance, 10/12/17 21:20:19 EDT, Tablet Start Date: 10/12/17 Status: Ordered Oxycodone By Mouth, 0 Refills, Maintenance, 06/20/20 11:46:00 EST, Partial fill upon patient request if the prescription is for a schedule II opioid drug. Start Date: 06/20/20 Status: Ordered Polyethylene Glycol 3350 = 17 Gm, By Mouth, Daily, 0 Refills, Maintenance, 06/20/20 11:47:00 EST, Partial fill upon patient request if the prescription is for a schedule II opioid drug. Start Date: 06/20/20 Status: Ordered potassium chloride 20 mEq oral tablet, extended release 1 tablet = 20 mEq, By Mouth, Daily, # 7 tablet, 0 Refills, Maintenance, 10/14/17 12:00:45 EDT, ER Tablet Start Date: 10/14/17 Status: Ordered Problem List Condition Confirmation Course Effective Dates Status Health St atus Informant Depression Confirmed Active Fibromyalgia Confirmed Active Insomnia Confirmed Active Disc disease Confirmed Active Obese class I Confirmed Active Vertigo Confirmed Active Social History Social History Type Response Smoking Status Never smoker entered on: 02/21/16 Sex Female Patient Care team information Care Team Personnel Name: Not on Staff, PCP Position: S Physician (General Medicine) Member Role: PCP Care Team Related Persons Name: JOHNSON ELDER Address: home [address] [place] [id number] Name: JOHNSON MORGAN Address: home [address] [place] [address]
--- OUTSIDE RECORDS SUMMARY | 2023-10-15 13:07 | XMS_ITS | Continuity of Care Document ---
Author Organization [facility] galeRethink Books [facility] Address [address], 4t [place] [address]- Care Team Providers Care Dock Boss Name Role Phone Not on Staff, PCP Primary Care Physician Unavail able Encounter [facility] [place] Date(s): 04/04/23 - 05/04/23 [facility] Chantalemelissa MunguiaCieslok Medias [facility] [address], [address]th [place] [address]- Allergies, Adverse Reactions, Alerts No Known Allergies [...] be injected into patients bladder. Pt will berry picker medication 12/25/18., # 1 vials, 0 [...] 06/20/20 11:53:00 EST, Route to Pharmacy Electronically, [facility]/pharmacy #[id number], Partial fill upon patient request if [...] 0 Refills, Maintenance, 06/05/20 11:53:00 EST, Tablet, [facility]/pharmacy #[id number], Partial fill upon patient request if the prescription is for a schedule II opioid drug., 157.48,... Start Date: 06/05/20 Status: Ordered Estrace Vaginal Cream 0.1 mg/g = 1 Gm, Vaginally, Every Friday and , # 42.5 Gm, 3 Refills, Maintenance, 12/12/20 16:07:00 EDT, [facility]/pharmacy #[id number], Partial fill upon patient request if [...] Persons Name: JOHNSON ELDER Address: home [address] [place] [address] Name: JOHNSON MORGAN Address: home [address] [place] [address]
--- OUTSIDE RECORDS SUMMARY | 2023-10-15 13:07 | XMS_ITS | Continuity of Care Document ---
Author Organization [facility]issa galeChanRx Corp [facility] Address [address], [address]t [place] [address]- Care Team Providers Care Petrol Tanker Driver Name Role Phone Not on Staff, PCP Primary Care Physician Unavail able [place] [facility] [place] 05/02/23 [facility] Chantalemelissa MunguiaRazients [facility] [address], [address]th [place] [address]- Allergies, Adverse Reactions, Alerts No Known Allergies [...] be injected into patients bladder. Pt will garbage pick up man medication 12/25/18., # 1 vials, 0 Refills, [...] 11:53:00 EST, Route to Pharmacy Electronically, [facility]/pharmacy #[id number], Partial fill upon patient request if [...] Refills, Maintenance, 06/05/20 11:53:00 EST, Tablet, [facility]/pharmacy #[id number], Partial fill upon patient request if the prescription is for a schedule II opioid drug., 157.48,... Start Date: 06/05/20 Status: Ordered Estrace Vaginal Cream 0.1 mg/g = 1 Gm, Vaginally, Every Friday and , # 42.5 Gm, 3 Refills, Maintenance, 12/12/20 16:07:00 EDT, [facility]/pharmacy #[id number], Partial fill upon patient request if [...] Persons Name: JOHNSON ELDER Address: home [address] [place] [address] Name: JOHNSON MORGAN Address: home [address] [place] [address]
--- OUTSIDE RECORDS SUMMARY | 2023-10-15 13:07 | XMS_ITS | Continuity of Care Document ---
Author Organization [facility]el[facility] galeWHATT [facility] Address [address], [address]t [place] [address]- Care Team Providers Care Funeral Home General Manager Name Role Phone Not on Staff, PCP Primary Care Physician Unavail able [place] [facility] [place] Date(s): 05/01/23 - 05/31/23 [facility] Chantalemelissa MunguiaShoeSize.Mes [facility] [address], [address]th [place] [address]- Allergies, Adverse Reactions, Alerts No Known Allergies [...] be injected into patients bladder. Pt will seed cone picker medication 12/25/18., # 1 vials, 0 [...] 11:53:00 EST, Route to Pharmacy Electronically, [facility]/pharmacy #[id number], Partial fill upon patient request [...] Refills, Maintenance, 06/05/20 11:53:00 EST, Tablet, [facility]/pharmacy #[id number], Partial fill upon patient request if the prescription is for a schedule II opioid drug., 157.48,... Start Date: 06/05/20 Status: Ordered Estrace Vaginal Cream 0.1 mg/g = 1 Gm, Vaginally, Every Friday and , # 42.5 Gm, 3 Refills, Maintenance, 12/12/20 16:07:00 EDT, [facility]/pharmacy #[id number], Partial fill upon patient request [...] Persons Name: JOHNSON ELDER Address: home [address] [place] [id number] Name: JOHNSON MORGAN Address: home [address] [place] [id number]
--- OUTSIDE RECORDS SUMMARY | 2023-10-15 13:07 | XMS_ITS | Continuity of Care Document ---
Author Organization [facility] ter Address [address] [place] [address]- Care Team Providers Care Brine Supervisor Name Role Phone Not on Staff, PCP Primary Care Physician Unavail able Encounter [facility] [place] Date(s): 08/02/22 - 02/06/[address] [address] Attending Physician: Tom Nation DMD Admitting Physician: Tom Nation DMD Allergies, Adverse Reactions, Alerts No Known Allergies [...] be injected into patients bladder. Pt will pickling grader medication 12/25/18., # 1 vials, 0 Refills, Maintenance, 12/03/18 9:56:31 EDT Start Date: 12/03/18 Status: Ordered clobetasol 0.05% topical ointment See Instructions, 1 application Topically nightly for 3 months and then 1 - 3x per week for maintenance., # 30 Gm, 2 Refills, Maintenance, 03/16/21 10:22:00 EDT, Ointment, [facility]/pharmacy #[id number], Partialfill upon patient request if the prescription is fo... Start Date: 03/16/21 Status: Ordered Colace sodium 100 mg oral capsule 100 mg, 1, capsule, By Mouth, 2 times a day, PRN, # 60 capsule, Refills 2, Tot. Refills 2, Maintenance, for constipation, 06/20/20 11:53:00 EST, Route to Pharmacy Electronically, [facility]/pharmacy #[id number], Partial fill upon patient request [...] 0 Refills, Maintenance, 06/05/20 11:53:00 EST, Tablet, [facility]/pharmacy #[id number], Partial fill upon patient request if the prescription is for a schedule II opioid drug., 157.48,... Start Date: 06/05/20 Status: Ordered Estrace Vaginal Cream 0.1 mg/g = 1 Gm, Vaginally, Every Friday and , # 42.5 Gm, 3 Refills, Maintenance, 12/12/20 16:07:00 EDT, [facility]/pharmacy #[id number], Partial fill upon patient request [...] Persons Name: JOHNSON ELDER Address: home [address] [place] [id number] Name: JOHNSON MORGAN Address: home [address] [place] [address]
--- OUTSIDE RECORDS SUMMARY | 2023-10-15 13:07 | XMS_ITS | Continuity of Care Document ---
Author Organization [facility]melissa galeVocoMDdave [facility] Address [address] [place] [address], [address] [place] [address]- Care Team Providers Care Industrial Rehabilitation Consultant Name Role Phone Not on Staff, PCP Primary Care Physician Unavail able [place] [facility] [facility] [place] [id number] Date(s): 04/22/23 - 05/22/23 [facility] Chantale MunguiaVocoMDs [facility] [address] [place], [place] [address] Attending Physician: Junior Mancia Admitting Physician: Junior Mancia Referring Physician: AdmtrJunior Allergies, Adverse Reactions, Alerts No Known Allergies [...] be injected into patients bladder. Pt will bean picker machine operator medication 12/25/18., # 1 vials, 0 Refills, [...] 06/20/20 11:53:00 EST, Route to Pharmacy Electronically, [facility]/pharmacy #[id number], Partial fill upon patient request if [...] 0 Refills, Maintenance, 06/05/20 11:53:00 EST, Tablet, [facility]/pharmacy #[id number], Partial fill upon patient request if the prescription is for a schedule II opioid drug., 157.48,... Start Date: 06/05/20 Status: Ordered Estrace Vaginal Cream 0.1 mg/g = 1 Gm, Vaginally, Every Friday and , # 42.5 Gm, 3 Refills, Maintenance, 12/12/20 16:07:00 EDT, [facility]/pharmacy #[id number], Partial fill upon patient request if [...] Persons Name: JOHNSON ELDER Address: home [address] [place] [id number] Name: JOHNSON MORGAN Address: home [address] [place] [address]
[2023-10-15 13:13] VITALS: BP 136/74; BMI 33.7
--- NOTE | 2023-10-15 13:13 | A.OFFVIS_ITS ---
Intake Vital Signs 10/15/23 13:13 Height 5 ft 2 in Weight 184 lb BMI 33.7 BP 136/74 Intake Visit Reasons: Vaginal odor Alarm Investigator Required: Yes Alarm Investigator Name: Jin Arthur Information Interpreted: clinical only Platform Material Handling Supervisor: Platform Material Handling Supervisor Present (Ivone) Allergies No Known Allergies Allergy (Verified 10/15/23 13:13) Medication List - Last Reconciled 10/15/23 by Martha Robles CNM amitriptyline 100 mg PO DAILY bisacodyl (Dulcolax (bisacodyl)) 10 mg (2 x 5 mg) PO BEDTIME 30 days clobetasol 0.05% (Temovate) 1 appl topical DAILY cyclobenzaprine 10 mg PO TID duloxetine 30 mg PO DAILY estradiol 0.01%(0.1mg/gram) 1 g vaginal 2XW gabapentin 300 mg PO BID hydrocortisone valerate 0.2% 1 appl topical BEDTIME PRN 30 days linaclotide (Linzess) 290 mcg PO QAM 30 days lorazepam 0.5 mg PO meclizine 25 mg PO TID PRN meloxicam 15 mg PO DAILY metoclopramide HCl (Reglan) 10 mg PO QIDACHS naproxen 500 mg PO BID PRN omeprazole 40 mg PO BID 30 days simethicone 180 mg PO BID tramadol 50 mg PO Is last menstrual period known: No Post menopausal: Yes HPI Vaginal odor HPI Details She is having vaginal itching and also a terrible terrible odor to her urine that is horrible. She sees a urologist but does not have an appointment till November where she is going be getting a repeat injection of Botox in her bladder at [facility] to help deal with urinary incontinence. This is a longstanding problem. She also was diagnosed with lichen sclerosis in the past and was given cream for this but it has run out. In addition she does have primary care provider who manages all her other issues and also she does have urinary frequency but she attributes this to the incontinence. She is also found to have Gardnerella at her last problem visit last January and was treated for that she said the 2nd medication would better than the 1st. [facility] Medical History WANDA (obstructive sleep apnea) Lichen sclerosus GERD (gastroesophageal reflux disease) Fibromyalgia Vertigo Anxiety and depression Bladder prolapse Surgical History H/O colonoscopy H/O esophagogastroduodenoscopy Hx of hysterectomy Hx of fasciotomy Hx of oophorectomy History of endometrial ablation Family History Father No problems noted. Mother High blood pressure Heart problem Sister Heart problem Son Obesity Daughter Multiple sclerosis Thyroid condition Social History Household Members Other:: SON Housing: Apartment Alcohol intake: former Patient Tobacco Use Status: Never used Tobacco service: No Current occupational status: disabled Sexual orientation: Straight/Heterosexual Gender identity: Female Female Reproductive History Menstrual Age of Menarche: 11 control method: none History of abnormal pap smear: Yes (unsure date) Physical Exam Vital Signs: Last Vital Signs BP 136/74 10/15/23 13:13 BMI result Body Mass Index 33.7 Other: DETAILS OF THE EXAM. PATIENT'S VAGINA IS ATROPHIC CERVIX/(the tissue actually felt more like surgical scar tissue but the patient denied to me that she had any kind of surgery in that area of her body, on direct questioning, while I was doing the exam. It felt consistent with vaginal cuff tissue and scar tissue. Only after the exam did I see in her records that she has a history of a hysterectomy.) IS FLATTENED AGAINST POSTERIOR VAGINAL WALL MUCOSA IS FRIABLE BLADE OF SPECULUM ESPECIALLY WHEN THE PATIENT VALSALVA AND PUSH THE SPECULUM OUT DURING THE EXAM. TEST TAKEN FOR GONORRHEA CHLAMYDIA TRICHOMONIASIS GARDNERELLA AND DESTINY. THE PATIENT IS MUCOSA DOES POSSIBLY APPEAR CONSISTENT WITH LICHEN SCLEROSIS VERSUS ATROPHIC CHANGES. SEE PLAN WILL TREAT SYMPTOMATICALLY FOR POSSIBLE DESTINY TO DEAL WITH VAGINAL ITCHING BUT WE WILL AWAIT TESTING RESULTS TO SEE WHAT ELSE IF ANYTHING NEEDS TO BE TREATED.. IT ALSO FELT LIKE THERE WAS SOME VAGINAL SCAR TISSUE SURROUNDING PATIENT'S CERVIX CONSISTENT WITH VAGINAL LACERATIONS FROM OBSTETRICAL PROCEDURES. OF NOTE PATIENT'S BLADDER WAS VERY VERY FULL PATIENT WAS TO SUBMIT A CLEAN-CATCH URINALYSIS AFTER THIS EXAM. PATIENT DID HAVE A GOOD TONE WITH KEGEL. External Female Exam: normal external appearance Speculum Exam - Vagina: normal appearance of the vagina and normal vaginal discharge Speculum Exam - Cervix: normal appearance of the cervix Bimanual exam- vagina & uterus: normal bimanual exam, uterine size normal, consistency normal, uterine mobility normal, uterine shape normal and non-tender Bimanual Exam- Adnexa, other: normal adnexae, no masses and No adnexal tenderness Results Reviewed Results Reviewed: PREVIOUS TEST RESULTS REVIEWED Assessment & Plan Assessment & Plan (1) Hx of hysterectomy: Comment: due to prolapse 05/2020 @[facility] Code(s): Z90.710 - Acquired absence of both cervix and uterus (2) Hx of oophorectomy: Comment: Right (3) Urinary incontinence: Code(s): R32 - Unspecified urinary incontinence (4) Lichen sclerosus: Code(s): L90.0 - Lichen sclerosus et atrophicus (5) Vaginal odor: Code(s): N89.8 - Other specified noninflammatory disorders of vagina (6) Malodorous urine: Comment: per patient-UA C&S sent patient to follow-up with urology or PCC. Code(s): R82.90 - Unspecified abnormal findings in urine Plan She is having vaginal itching and also a terrible terrible odor to her urine t hat is horrible. She sees a urologist but does not have an appointment till November where she is going be getting a repeat injection of Botox in her bladder at [facility] to help deal with urinary incontinence. This is a longstanding problem. She also was diagnosed with lichen sclerosis in the past and was given cream for this but it has run out. In addition she does have primary care provider who manages all her other issues and also she does have urinary frequency but she attributes this to the incontinence. She is also found to have Gardnerella at her last problem visit last January and was treated for that she said the 2nd medication would better than the 1st. Lengthy discussion about the challenges a figuring out whether problem is vaginal versus urinary in her case since she is seeing specialists for her bladder issues it really would be best if she continue with any bladder issues with her bladder specialist or primary care provider she has on a number of other medications and I would not want to be giving her medication for urinary tract infection that would interact badly with any of her other issues. That being said since she is here today we will send a clean-catch urine analysis but we will not know for 3 days I asked her to call Friday morning to see if there are any results though they may not be available then In the meantime for the vaginal itching I will treat her as if it is a yeast infection she may need medication for the lichen sclerosis or she may have bacterial vaginosis or she may have a urinary tract infection or multiparous tubal causes but at least the miconazole cream will not be problematic in it may be helpful to use in the meantime she is also taking ease 0 cranberry urinary support and a PH support for her vagina. Orders: Orders Bacterial Vaginosis Panel Today Z20.2 - Contact with and (suspected) exposure to infections with a predominantly sexual mode of transmission CT NG by PCR Today Z01.419 - Encounter for gynecological examination (general) (routine) without abnormal findings Medications: New miconazole nitrate 2% (Miconazole-7) 1 appful vaginal BEDTIME 45 grams 1RF 7 days Coding Level of Care Code Est Pt Level 4 (28147) Diagnoses Hx of hysterectomy Z90.710 Hx of oophorectomy Urinary incontinence R32 Lichen sclerosus L90.0 Vaginal odor N89.8 Malodorous urine R82.90
== END 2023-10-15 14:31 | disposition home or self-care (01) ==
LOC: HO.HWSM 13:03
PROVIDERS: PCP Nurse Practitioner Family; Visit Provider Advanced Practice Midwife
DX: Z90.710 Acquired absence of both cervix and uterus (principal); R32 Unspecified urinary incontinence; L90.0 Lichen sclerosus et atrophicus; N89.8 Other specified noninflammatory disorders of vagina; R82.90 Unspecified abnormal findings in urine
CPT/HCPCS: 99214

== ENCOUNTER 2023-10-15 13:03 | Outpatient (REF) | payer OTHER, SELFPAY ==
[2023-10-16 14:53] LABS: CT PCR NOT DETECTED (Not Detect.); NG PCR NOT DETECTED (Not Detect.)
[2023-10-17 12:18] LABS: BV Int Neg Control Negative (Negative); BV Int Pos Control Positive (Positive)
== END 2023-10-15 13:04 | disposition home or self-care (01) ==
LOC: HO.LAB 13:03
PROVIDERS: PCP Nurse Practitioner Family; Visit Provider Advanced Practice Midwife
DX: Z01.419 Encounter for gynecological examination (general) (routine) without abnormal findings (principal); Z20.2 Contact with and (suspected) exposure to infections with a predominantly sexual mode of transmission; N89.8 Other specified noninflammatory disorders of vagina; R82.90 Unspecified abnormal findings in urine; I10 Essential (primary) hypertension
CPT/HCPCS: 0353U; 87086; 87480; 87510; 87660

== ENCOUNTER 2024-04-02 13:24 | Outpatient (AMB) | payer OTHER, SELFPAY ==
[2024-04-02 13:28] VITALS: BP 148/83; PULSE 81; BMI 32.5
--- NOTE | 2024-04-02 13:28 | MHC.OFFVIS ---
Vital Signs 04/02/24 13:28 Height 5 ft 2 in Weight 177 lb 11.081 oz BMI 32.5 BP 148/83 H Blood Pressure Location Lt brachial Position Sitting Pulse 81 Intake Visit Reasons: Follow up Meds/CIC Intake Note: Nirmala presents to in office today in follow up of CIC. CC: Patient reports that her throat hurts and she feels that her throat is closing up . Per patient she states that it hurts when she swallows. Joiner Helper Required: Yes Accompanied by: Self / Same As Patient Allergies No Known Allergies Allergy (Verified 04/02/24 13:39) HPI HPI Follow up Meds/CIC: Details: Assessment & Plan (1) Dysphagia: ?Code(s): R13.10 - Dysphagia, unspecified ?Plan: [place] #Cornelio Wells The magic mouthwash had to be re directed to another pharmacy as her usual one did not have the lidocaine - we sent it to the [facility] pharmacy. She ran out of the LInzess - I had sent it, so if she does not get it we may need a PA. She continues on her omeprazole bid and her reglan qidachs. She also has bisacodyl and simethicone. Her swallowing and nocturnal choking is greatly improved since the dilation. Educated we may need to do this again. She had her sleep study and is using a CPAP machine with good results and improved sleep. ROV 3 mos. (2) Chronic idiopathic constipation: ?Code(s): K59.04 - Chronic idiopathic constipation (3) GERD (gastroesophageal reflux disease): ?Code(s): K21.9 - Gastro-esophageal reflux disease without esophagitis (4) Abdominal bloating: ?Code(s): R14.0 - Abdominal distension (gaseous) ? ? ? Medications: Refilled omeprazole 40 mg? PO BID 30 days 60 caps 6RF K21.9 - Gastro-esophageal reflux disease without esophagitis ? simethicone 180 mg? PO BID 60 caps 6RF R14.0 - Abdominal distension (gaseous) ? metoclopramide HCl (Reglan) 10 mg? PO QIDACHS 120 tabs 6RF K30 - Functional dyspepsia ? linaclotide (Linzess) ?? D/c 145mcg dose 290 mcg? PO QAM 30 days 30 caps 6RF K59.04 - Chronic idiopathic constipation ? bisacodyl (Dulcolax (bisacodyl)) 10 mg (2 x 5 mg) PO BEDTIME 30 days 60 tabs 3RF ? ? Magic Mouthwash Diphen/Lido/Antacid 1:1:1 ?? Gargle x 30 seconds and then spit. 10 mL? PO TID 2 days PRN 60 mL 0RF throat discomfort ? EGD 10/10/22 EGD Findings:? Esophagus:? Normal mucosa noted in the entire esophagus. The Z line was at 36 cm and irregular to < 1cm. Stomach:? Normal mucosa was noted in the stomach. Duodenum:? Normal mucosa was noted in the whole of the examined duodenum. Additional intervention:?A soft tip Savary wire was introduced through the gastroscope biopsy channel and advanced to the antrum.? The gastroscope was then backed out.? A Savary Davian bougie was guided over the wire and the esophagus was incrementally dilated from 16-18 mm.? On relook, small tear was noted at the level of cricopharyngeus indicating successful dilation. ? EGD Impressions:? Normal esophagus (dilated) Normal stomach Normal duodenum?? Recommendations:?? Can take PO lidocaine/magic mouthwash PRN for the next 1-2 days for soreness. Repeat EGD with dilation as needed for return of dysphagia Above has been reviewed with the patient. Relevant educational hand outs were provided at discharge.? TODAY'S VISIT [place] #Pb Live Patient has been lost to follow-up since 09/2022 In the past she was on omeprazole 40 mg twice a day, simethicone, Linzess 290 micro g along with bisacodyl, and Reglan 10 mg 4 times a day. She says that her swallowing was improved fro about 3 months, but then the problem returned. She now has the same oropharyngeal dysphagia. She has continued on her omeprazole bid and her reglan 10mg qid and there has been no interruption of this therapy. She did run out of the LInzess. She feels that her current acid suppression therapy has been controlling her symptoms well and she has not undo heartburn. She has WANDA and denies any other respiratory problems or cardiac problems. No ID problems There are no prior problems with anesthesia or sedation. She is due for colonoscopy, no FHX of crc or polyps and she denies any PHX polyps. ROV 6 weeks. [facility] Medical History (Updated 04/02/24 @ 14:00 by DOMI Wetzel) Dysphagia Vaginal odor Pre-op chest exam Gastropathy Encounter for annual routine gynecological examination WANDA (obstructive sleep apnea) Lichen sclerosus GERD (gastroesophageal reflux disease) Fibromyalgia Vertigo Anxiety and depression Bladder prolapse Surgical History Hx of hysterectomy Hx of oophorectomy H/O colonoscopy H/O esophagogastroduodenoscopy Hx of fasciotomy History of endometrial ablation Family History Father No problems noted. Mother High blood pressure Heart problem Sister Heart problem Son Obesity Daughter Multiple sclerosis Thyroid condition Social History Household Members Other:: SON Housing: Apartment Alcohol intake: former Patient Tobacco Use Status: Never used Tobacco service: No Current occupational status: disabled Sexual orientation: Straight/Heterosexual Gender identity: Female Female Reproductive History Menstrual Age of Menarche: 11 Review of Systems Const Denies fatigue, Denies fever(s), Denies night sweats, Denies poor appetite and Denies weight loss ENT Reports Normal hearing present, Denies dental pain, Reports dysphagia, Denies hearing loss, Denies mouth pain, Denies odynophagia, Denies throat swelling, Denies tongue swelling and Reports other (Dentition adequate) Card Reports no additional complaints Resp Reports no additional complaints GI Details: Denies abdominal pain, Denies melena, Reports bloating, Denies hematochezia, Reports constipation, Denies GI cramping, Reports dysphagia, Denies excessive flatus, Reports early satiety, Reports heartburn, Denies diarrhea, Denies nausea, Denies odynophagia, Denies vomiting and Denies hematemesis Skin/Breast Denies pruritus, Denies lesions, Denies rash and Denies jaundice Neuro Reports Normal hearing present and Denies Abnormal speech present Endo Denies fatigue Aller/Immun Denies throat swelling and Denies tongue swelling Physical Exam Vital Signs: Last Vital Signs Pulse 81 04/02/24 13:28 BP 148/83 H 04/02/24 13:28 BMI result Body Mass Index 32.5 Const General: cooperative, no acute distress, well developed and well groomed Nutritional Appearance: well nourished and obese Orientation/consciousness: oriented to person, oriented to place and oriented to time Limitations: language barrier HEENT Head: Yes normocephalic and Yes atraumatic Eyes General: appearance normal, both eyes and all related structures Pupils: Equal, round and reactive pupils present Neck Neck: Yes normal visual inspection and Yes no lymphadenopathy Thyroid: Thyroid normal Resp Effort & Inspection: normal respiratory effort and able to speak in complete sentences Auscultation: clear to auscultation bilaterally Cardio Rate: regular rate Rhythm: regular rhythm Heart sounds: Normal, physiologic split S2 sound present Peripheral pulses: radial pulses present and posterior tibial pulses present GI Inspection: No distended, No Abdominal panniculus present and Yes obesity Palpation (GI): Soft to palpation, nontender, no guarding, not rigid and No hepatosplenomegaly present Percussion: Yes normal to percussion Auscultation: normal bowel sounds Rectal Exam - Female: deferred Skin General skin exam: no rashes or lesions noted, turgor normal, skin not dry, no jaundice, No spider nevi and no striae Rashes: no rashes Nails: normal Neuro General: oriented to person, oriented to place and oriented to time Cranial nerves: Yes Equal, round and reactive pupils present and Yes Normal hearing present Speech: No Abnormal speech present Extrem General: Yes normal to inspection, No clubbing, No cyanosis and No edema Psych Appearance: grossly normal and well kempt Mental Status: mental status grossly normal Speech and movement: Normal speech and movement present Affect: normal affect Attitude: cooperative Thought process: Normal thought process present and not confabulating Thought content: Normal thought content present Insight: Limited insight present (Psych) Judgement: Limited judgement present (Psych) Assessment & Plan Assessment & Plan (1) Dysphagia: Code(s): R13.10 - Dysphagia, unspecified Category: Medical (2) Chronic idiopathic constipation: Code(s): K59.04 - Chronic idiopathic constipation Category: Medical (3) Abdominal bloating: Code(s): R14.0 - Abdominal distension (gaseous) Category: Medical (4) GERD (gastroesophageal reflux disease): Code(s): K21.9 - Gastro-esophageal reflux disease without esophagitis Category: Medical (5) Delayed gastric emptying: Code(s): K30 - Functional dyspepsia Category: Medical (6) Pre-op examination: Code(s): Z01.818 - Encounter for other preprocedural examination Category: Medical Plan [place] #Pb Live Patient has been lost to follow-up since 09/2022 In the past she was on omeprazole 40 mg twice a day, simethicone, Linzess 290 micro g along with bisacodyl, and Reglan 10 mg 4 times a day. She says that her swallowing was improved fro about 3 months, but then the problem returned. She now has the same oropharyngeal dysphagia. She has continued on her omeprazole bid and her reglan 10mg qid and there has been no interruption of this therapy. She did run out of the LInzess. She feels that her current acid suppression therapy has been controlling her symptoms well and she has not undo heartburn. She has WANDA and denies any other respiratory problems or cardiac problems. No ID problems There are no prior problems with anesthesia or sedation. She is due for colonoscopy, no FHX of crc or polyps and she denies any PHX polyps. ROV 6 weeks. Orders: Orders EGD - GI Use Only Today R13.10 - Dysphagia, unspecified, Z01.818 - Encounter for other preprocedural examination Comprehensive Met. Panel Today R13.10 - Dysphagia, unspecified, Z01.818 - Encounter for other preprocedural examination Complete Blood Count Auto Diff Today R13.10 - Dysphagia, unspecified, Z01.818 - Encounter for other preprocedural examination Medications: New sodium,potassium,mag sulfates 17.5-3.13-1.6 gram (Suprep Bowel Prep Kit) 480 mL orally; FOR COLONOSCOPY PREP 354 mL 0RF Refilled bisacodyl (Dulcolax (bisacodyl)) 10 mg (2 x 5 mg) PO BEDTIME 60 tabs 3RF 30 days linaclotide (Linzess) 290 mcg PO QAM 30 caps 6RF K59.04 - Chronic idiopathic constipation metoclopramide HCl (Reglan) 10 mg PO QIDACHS 120 tabs 6RF K30 - Functional dyspepsia omeprazole 40 mg PO BID 60 caps 6RF K21.9 - Gastro-esophageal reflux disease without esophagitis simethicone 180 mg PO BID 60 caps 6RF R14.0 - Abdominal distension (gaseous) Coding Level of Care Code Est Pt Level 4 (99250) Diagnoses Dysphagia R13.10 Chronic idiopathic constipation K59.04 Abdominal bloating R14.0 GERD (gastroesophageal reflux disease) K21.9 Delayed gastric emptying K30 Pre-op examination Z01.818
== END 2024-04-02 16:27 | disposition home or self-care (01) ==
PROVIDERS: PCP Nurse Practitioner Family; Visit Provider Nurse Practitioner
DX: R13.10 Dysphagia, unspecified (principal); K59.04 Chronic idiopathic constipation; R14.0 Abdominal distension (gaseous); K21.9 Gastro-esophageal reflux disease without esophagitis; K30 Functional dyspepsia; Z01.818 Encounter for other preprocedural examination
CPT/HCPCS: 99214

== ENCOUNTER 2024-04-02 13:24 | Outpatient (REF) | payer OTHER, SELFPAY ==
[2024-04-02 14:39] LABS: MANUAL DIFF FLAG NO
[2024-04-02 15:21] LABS: Basophils Percent Auto 0.3 % (0-2); Eosinophils Absolute Auto 0.1 X10*3/uL (0.0-0.4); Eosinophils Percent Auto 0.9 % (0-4); Hematocrit 43.5 % (37.0-47.0); Hemoglobin 14.3 g/dl (12.0-16.0); Imm Gran Abs Auto 0.02 X10*3/uL (0.00-0.03); Imm Gran Pct Auto 0.3 % (0.0-0.4); Lymphocytes Absolute Auto 2.1 X10*3/uL (1.2-4.9); Lymphocytes Percent Auto 30.9 % (20-40); Mean Corpuscular HGB Conc 32.9 g/dl (31.0-35.0); Mean Corpuscular Hemoglobin 28.5 pg (27.0-33.0); Mean Corpuscular Volume 86.7 fL (80.0-98.0); Mean Platelet Volume 9.3 fL (9.4-12.3); Monocytes Absolute Auto 0.4 X10*3/uL (0.1-1.2); Monocytes Percent Auto 6.6 % (2-11); Platelet Count 272 X10*3/uL (160-400); Red Blood Count 5.02 X10*6/uL (4.20-5.50); Red Cell Distribution Width 12.7 % (11.0-16.0); White Blood Count 6.6 X10*3/uL (4.8-10.8)
[2024-04-02 17:55] LABS: Alanine Aminotransferase 16 U/L (0-31); Albumin Level 4.3 g/dL (3.5-5.0); Alkaline Phosphatase 94 U/L (39-117); Anion Gap 11 (12-20); Aspartate Amino Transferase 15 U/L (5-31); Bilirubin Total 0.4 mg/dL (0.0-1.0); Blood Urea Nitrogen 11 mg/dL (9-16); Calcium 9.7 mg/dL (8.4-10.2); Carbon Dioxide 27 mmol/L (22-29); Chloride 107 mmol/L (96-108); Estimated Glomerular Filt Rate > 60; Glucose Random 100 mg/dL (60-115); Potassium 4.3 mmol/L (3.3-5.1); Sodium 141 mmol/L (135-145); Total Protein 7.5 g/dL (6.5-8.0)
== END 2024-04-02 13:25 | disposition home or self-care (01) ==
LOC: HO.LAB 13:24
PROVIDERS: PCP Nurse Practitioner Family; Visit Provider Nurse Practitioner
DX: R13.10 Dysphagia, unspecified (principal); Z01.818 Encounter for other preprocedural examination
CPT/HCPCS: 36415; 80053; 85025